=== PATIENT | male | born 1985 | race Caucasian/White ===

== ENCOUNTER 2025-03-21 06:19 | Day surgery (SDC) | payer BC, SELFPAY ==
[2025-03-21] VITALS (11 sets, daily range): BP systolic 104–155; BP diastolic 61–93; BMI 34.7
[2025-03-21 09:21] LABS: Glucose - Point of Care 209 mg/dl (70-99)
[2025-03-21] MEDS: NORMOSOL-R/PLASMALYTE-A 1000 IV (09:39)
[2025-03-21 11:47] LABS: Glucose - Point of Care 171 mg/dl (70-99)
== END 2025-03-21 13:50 | disposition home or self-care (01) ==
LOC: SDS 06:19
PROVIDERS: ATTENDING PHYSICIAN Otolaryngology
DX: J34.3 Hypertrophy of nasal turbinates (principal); J34.2 Deviated nasal septum; J34.89 Other specified disorders of nose and nasal sinuses
CPT/HCPCS: 30140; 30520; 82962